=== PATIENT | female | born 1975 | race Caucasian/White ===

== ENCOUNTER 2023-12-13 18:16 | Emergency (ER) | payer MEDICARE ==
[~2023-12-13] VITALS: Ht 167.6 cm; Wt 59.0 kg
[2023-12-13 18:19] VITALS: BP 166/87; PULSE 71; RESP 18; TEMP 98.1; O2SAT 97
[2023-12-13 20:00] VITALS: BP 166/87; PULSE 71; RESP 18; TEMP 98.1; O2SAT 97
== END 2023-12-13 20:15 | disposition home or self-care (01) ==
LOC: MED 18:16
DX: M79.632 Pain in left forearm (principal); T82.590A Other mechanical complication of surgically created arteriovenous fistula, initial encounter; I11.0 Hypertensive heart disease with heart failure; E11.9 Type 2 diabetes mellitus without complications; N28.9 Disorder of kidney and ureter, unspecified; Z88.5 Allergy status to narcotic agent; Z79.1 Long term (current) use of non-steroidal anti-inflammatories (NSAID); Z88.8 Allergy status to other drugs, medicaments and biological substances; Z79.4 Long term (current) use of insulin; Z79.899 Other long term (current) drug therapy; Y92.89 Other specified places as the place of occurrence of the external cause
CPT/HCPCS: 99283